=== PATIENT | female | born 1995 | race Caucasian/White ===

== ENCOUNTER 2021-03-24 11:56 | Emergency (ER) | payer BC ==
[~2021-03-24] VITALS: Ht 170.2 cm; Wt 104.5 kg
[2021-03-24] MEDS ORDERED: ACETAMINOPHEN 500 MG TAB PO ONE (16:40)
[2021-03-24] MEDS ORDERED: diphenhydrAMINE 50MG/ML VIAL (J1200) IV ONE (18:25)
[2021-03-24] MEDS ORDERED: NS 1,000 ML IV ONE ×2 (18:25)
[2021-03-24] MEDS ORDERED: METOCLOPRAMIDE INJ 10MG/2ML VIAL (J2765 PER 1) IV ONE (18:25)
[2021-03-24 19:27] LABS: HEMOGLOBIN 12.3 g/dl (12.0-15.5); LYMPH % 24.3 % (24.0-44.0); MEAN CORPUSCULAR HGB CONC 30.8 g/dl (32.0-36.5); MEAN CORPUSCULAR VOLUME 87.9 fl (80.0-96.0); MONO # 0.5 10^3/uL (0.0-0.8); MONO % 12.2 % (2.0-8.0); NEUTROPHILS # 2.7 10^3/uL (1.5-8.5); NEUTROPHILS % 63.3 % (36.0-66.0); PLATELET COUNT, AUTOMATED 246 10^3/uL (150-450); RED BLOOD COUNT 4.55 10^6/uL (4.00-5.40); WHITE BLOOD COUNT 4.2 10^3/uL (4.0-10.0)
[2021-03-24 19:55] LABS: BLOOD UREA NITROGEN 10 MG/DL (7-18); CALCIUM LEVEL 8.6 MG/DL (8.5-10.1); CARBON DIOXIDE LEVEL 25 MEQ/L (21-32); CHLORIDE LEVEL 106 MEQ/L (98-107); GLOMERULAR FILTRATION RATE > 60.0 (>60); GLUCOSE, FASTING 89 MG/DL (70-100); POTASSIUM SERUM 3.8 MEQ/L (3.5-5.1); SODIUM LEVEL 141 MEQ/L (136-145)
[2021-03-24 19:56] LABS: ALBUMIN 3.5 GM/DL (3.2-5.2); ALT/SGPT 35 U/L (12-78); BILIRUBIN,DIRECT < 0.1 MG/DL (0.0-0.2); BILIRUBIN,TOTAL 0.2 MG/DL (0.2-1.0); LIPASE 129 U/L (73-393); TOTAL PROTEIN 7.5 GM/DL (6.4-8.2)
[2021-03-24 19:58] LABS: RSV AMPLIFICATION NEGATIVE (NEGATIVE)
[2021-03-24 20:11] LABS: HCG, SERUM QUALITATIVE NEGATIVE (NEGATIVE)
[2021-03-24 21:04] VITALS: O2SAT 96
[2021-03-24 22:28] VITALS: BP 96/51
== END 2021-03-24 22:41 | disposition home or self-care (01) ==
LOC: M ED 11:56
DX: U07.1 COVID-19 (principal); R50.9 Fever, unspecified; M06.9 Rheumatoid arthritis, unspecified
CPT/HCPCS: 80048; 80076; 83605; 83690; 84703; 85025; 87040; 87631; 87880; 96361; 96374; 96375; 99284; J1200; J2765

== ENCOUNTER 2021-03-26 08:21 | Outpatient (CLI) | payer BC ==
--- NOTE | 2021-03-24 22:01 | IPNPDOC ---
Text Note Date of Service The patient was seen on 03/24/21. NOTE Outpatient transfusion for COVID+ patient encounter Patient is COVID19+ will be receiving Monocolonal antibodies infusion therapy p er hospital infusion policy. Patient has been feeling tired at home with a fever, cough and muscle aches for the past 3 days which prompted her to come to the ER for visit. has not received COVID19 vaccine. Patient does not meet criteria to be admitted to the hospital. Patient is breathing at 97% on room air and does not dipped below 92% on ambulation. Patient will come in to receive the infusion and then be discharged to home with OP followup. On exam patient was resting comfortably lungs were clear to auscultation bilaterally with no crackles or wheezing. overweight. Regular heart rate. Patient was calm awake and answering all questions appropriately. Is able to speak in full sentences without appearing short of breath. Consent was obtained with patient and signed in the chart. Patient advised to return to hospital should his symptoms worsen. DIEGO MILTON MD Mar 24, 2021 22:01
[~2021-03-26] VITALS: Ht 170.2 cm; Wt 106.0 kg
[~2021-03-26 08:21] MED LIST: CASIRIVIMAB (REGN10933) 600 MG, IMDEVIMAB (REGN10987) 600 MG in NS 250 ML IV ONE
[2021-03-26] MEDS ORDERED: diphenhydrAMINE 25MG CAP PO ONE (09:00)
[2021-03-26] MEDS ORDERED: ACETAMINOPHEN TAB 650MG DOSE (2X325MG) PO PRN (09:00)
[2021-03-26] MEDS ORDERED: NS 1,000 ML IV SCH (09:00)
[2021-03-26] MEDS ORDERED: EPINEPHrine INJ 1 MG/ML 1ML AMP IM PRN (09:00)
[2021-03-26] MEDS ORDERED: methylPREDNISolone 125MG 2ML VIAL IV PRN (09:00)
[2021-03-26] MEDS ORDERED: ALBUTEROL SULFATE 2.5 MG/0.5 ML INH NEB SOLN INH PRN (09:00)
[2021-03-26] MEDS ORDERED: CASIRIVIMAB/IMDEVIMAB 1,200 MG in NS 250 ML IV ONE (09:00)
[2021-03-26] MEDS ORDERED: ALBUTEROL 90 MCG/ACT 8GM HFA INHALER INH PRN (09:00)
[2021-03-26] MEDS ORDERED: ACETAMINOPHEN TAB 650MG DOSE (2X325MG) PO ONE (09:00)
[2021-03-26] MEDS ORDERED: diphenhydrAMINE 50MG/ML VIAL (J1200) IV PRN (09:00)
[2021-03-26 09:05] VITALS: BP 114/65
[2021-03-26 09:35] VITALS: BP 105/72
[2021-03-26 10:05] VITALS: BP 120/56
[2021-03-26 11:05] VITALS: BP 121/74
== END 2021-03-26 11:05 | disposition home or self-care (01) ==
LOC: M OPCLI4PR 08:21
PROVIDERS: ATTEND Family Medicine
DX: U07.1 COVID-19 (principal)
CPT/HCPCS: 96361; M0243